=== PATIENT | female | born 1945 | race Native Hawaiian/Other Pacific Islander ===

== ENCOUNTER 2016-08-02 13:14 | Emergency (ER) | payer MEDICARE ==
[2016-08-02 13:20] VITALS: BMI 24.7
[2016-08-02 13:21] VITALS: O2SAT 98
[2016-08-02] MEDS ORDERED: Sodium Chloride 0.9% 1,000 ML IV ONE (13:46)
[2016-08-02] MEDS: Iohexol 240 (50 ml) PO STA ×2 (13:50→15:35)
--- NOTE | 2016-08-02 13:53 | C.PDOC ---
History Of Present Illness A 71 year old female presents to the ED c/o epigastric pain that occurred today. Patient notes feeling nausea and vomiting. Patient reports that waking up this morning feeling abdominally full and had epigastric discomfort. She ate oatmeal and started vomiting and then felt deep aching pain that diffuse to the lower extremities. Patient notes no prior abdominal pain and normal bowel movement but denies fever, chills, cough, diarrhea or any other complaints. Time Seen by Provider: 08/02/16 13:37 Chief Complaint (Nursing): Abdominal Pain History Per: Patient History/Exam Limitations: no limitations Onset/Duration Of Symptoms: Hrs Current Symptoms Are (Timing): Still Present Context: Food Severity: Mild Location Of Pain/Discomfort: Epigastric Associated Symptoms: Nausea, Vomiting Recent travel outside of the [place]: No Additional History Per: Patient Past Medical History Reviewed: Historical Data, Nursing Documentation, Vital Signs Vital Signs: Last Vital Signs Temp 97.9 F 08/02/16 13:35 Pulse 68 08/02/16 15:53 Resp 18 08/02/16 15:53 BP 152/63 H 08/02/16 15:53 Pulse Ox 98 08/02/16 15:53 - Medical History PMH: Gastritis, HTN, Hypercholesterolemia, Kidney Stones - [facility] Procedures ANESTH INJECT-SPIN CANAL (10/30/14) INJECT STEROID (10/30/14) LUMBOSAC SPINE X-RAY NEC (09/23/14) SPINAL CANAL INJECT NEC (10/30/14) Family History: States: Unknown Family Hx - Social History Hx Tobacco Use: No Hx Alcohol Use: No Hx Substance Use: No - Immunization History Hx Tetanus Toxoid Vaccination: No Hx Influenza Vaccination: No Hx Pneumococcal Vaccination: No Review Of Systems Except As Marked, All Systems Reviewed And Found Negative. Constitutional: Negative for: Fever, Chills Respiratory: Negative for: Cough Gastrointestinal: Positive for: Nausea, Vomiting, Abdominal Pain. Negative for : Diarrhea Musculoskeletal: Positive for: Leg Pain (Diffuse to lower extremities) Physical Exam - Physical Exam Appears: Non-toxic, No Acute Distress Skin: Warm, Dry Head: Atraumatic, Normacephalic Eye(s): bilateral: Normal Inspection Cardiovascular: Rhythm Regular, No Murmur Respiratory: Normal Breath Sounds, No Rales, No Rhonchi, No Wheezing Gastrointestinal/Abdominal: Bowel Sounds (All for quadrants good), Soft, Tenderness (Epigastric), No Guarding, No Rebound ED Course And Treatment - Laboratory Results Result Diagrams: 08/02/16 14:01 08/02/16 14:01 Lab Interpretation: Abnormal Interpretation Of Abnormal: WBC 12.5 with left shift. CMP unremarkable, Urine + blood ECG: Interpreted By Me ECG Rhythm: Sinus Rhythm ECG Interpretation: Normal O2 Sat by Pulse Oximetry: 98 (Room air) Pulse Ox Interpretation: Normal - CT Scan/US Abdomen and pelvis Other Rad Studies (CT/US): Read By Radiologist, Radiology Report Reviewed CT/US Interpretation: Accession No. : [id number]. Patient Name / ID : KO [id number] / [id number]. Exam Date : 08/02/2016 16:21:55 ( Approved ). Study Comment : Sex / Age : F / 71Y. Creator : Gia Perez MD. Dictator : Gia Perez MD. Hypo Splasher : Bathhouse Attendant : Gia Perez MD. Approver2 : Report Date : 08/02/2016 16:47:08. My Comment : . PROCEDURE: CT Abdomen and Pelvis with oral and IV contrast. HISTORY: abd pain. COMPARISON: Images from CT abdomen and pelvis without contrast performed 09/21/11. TECHNIQUE: Contiguous axial images of the abdomen and pelvis. Oral and IV contrast was administered. Coronal and Sagittal reformats generated and reviewed. Contrast dose: 100 mL Visipaque. Radiation dose: Total exam DLP = 253.55 mGy-cm. This CT exam was performed using one or more of the following dose reduction techniques: Automated exposure control, adjustment of the mA and/or kV according to patient size, and/or use of iterative reconstruction technique. FINDINGS: LOWER THORAX: No visible consolidation, pleural effusion, or pneumothorax. Small hiatal hernia and gastroesophageal reflux. LIVER: Unremarkable. GALLBLADDER AND BILE DUCTS: Unremarkable. PANCREAS: Unremarkable. SPLEEN: Unremarkable. ADRENALS: Unremarkable. KIDNEYS AND URETERS: 5 mm distal left UVJ calculus with proximal hydroureteronephrosis. Left perinephric inflammatory stranding. The right kidney appears unremarkable without hydronephrosis or obstructing calculus evident. BLADDER: See above. REPRODUCTIVE: Uterus is present. APPENDIX: The appendix is not identified. No secondary signs of acute appendicitis. BOWEL: The stomach is nondistended. The bowel loops appear within normal limits of caliber without evidence of intestinal obstruction. PERITONEUM: No significant free fluid. No definite free air. LYMPH NODES: No bulky lymphadenopathy identified. VASCULATURE: Atherosclerotic calcifications. No aortic aneurysm. BONES: L5-S1 posterior lumbar fusion with grade 1 anterolisthesis of L4 on L5. Mild degenerative changes. OTHER FINDINGS : None. IMPRESSION: 5 mm distal left UVJ calculus with proximal moderate hydroureteronephrosis. Left perinephric inflammatory stranding. Additional incidental findings as above. Reevaluation Time: 17:22 Reassessment Condition: Improved Medical Decision Making Medical Decision Making: Plans: -CT Abd/Pel -Blood labs -Omnipaque -Zofran -IV fluids -Urine labs -Reassess and disposition Disposition Counseled Patient/Family Regarding: Studies Performed, Diagnosis, Need For Followup, Rx Given - Disposition Referrals: Jackelin Barajas MD [Staff Provider] - Disposition: HOME/ ROUTINE Disposition Time: 17:26 Condition: IMPROVED Additional Instructions: Strain all urine Prescriptions: Tamsulosin [Flomax] 0.4 mg PO DAILY #14 cap traMADol [Ultram] 50 mg PO TID PRN #14 tab PRN Reason: Pain, Severe (8-10) Instructions: Renal Colic (ED) - Clinical Impression Clinical Impression: Renal colic on left side - Scribe Statement The provider has reviewed the documentation as recorded by the Scribe Maddison jamison All medical record entries made by the Scribe were at my direction and personally dictated by me. I have reviewed the chart and agree that the record accurately reflects my personal performance of the history, physical exam, medical decision making, and the department course for this patient. I have also personally directed, reviewed, and agree with the discharge instructions and disposition.
[2016-08-02 14:06] LABS: BASO # 0.1 K/uL (0.0-0.2); BASO % 0.6 % (0.0-2.0); HEMATOCRIT 38.5 % (34.0-47.0); LYMPH # 0.7 K/uL (1.0-4.3); LYMPH % 5.6 % (20.0-40.0); MEAN CELL VOLUME 83.6 fL (81.0-99.0); MEAN CORPUSCULAR HEMOGLOBIN 26.7 pg (27.0-31.0); MEAN CORPUSCULAR HGB CONC 31.9 g/dL (33.0-37.0); MEAN PLATELET VOLUME 8.8 fL (7.2-11.7); MONO # 0.2 K/uL (0.0-0.8); MONO % 1.9 % (0.0-10.0); PLATELET COUNT 181 K/uL (130-400); RED CELL DISTRIBUTION WIDTH 13.5 % (11.5-14.5); WHITE BLOOD COUNT 12.5 K/uL (4.8-10.8)
[2016-08-02 14:14] LABS: CHLORIDE 100 mmol/L (98-107); POTASSIUM 4.3 mmol/L (3.6-5.2); SODIUM 140 mmol/L (132-148)
[2016-08-02 14:16] LABS: AST/SGOT 36 U/L (14-36); BILIRUBIN,TOTAL 0.9 mg/dL (0.2-1.3); CARBON DIOXIDE 21 mmol/L (22-30); GFR AFRICAN-AMERICAN > 60
[2016-08-02 14:17] LABS: ALB/GLOB RATIO 1.2 (1.0-2.1); ALKALINE PHOSPHATASE 51 U/L (38-126); ALT/SGPT 24 U/L (9-52); BLOOD UREA NITROGEN 19 mg/dL (7-17); CALCIUM 9.7 mg/dl (8.6-10.4); GLUCOSE,RANDOM 146 mg/dL (65-105); TOTAL PROTEIN 9.1 g/dL (6.3-8.3)
[2016-08-02] MEDS ORDERED: Sodium Chloride 0.9% 1,000 ML ONE (14:21)
[2016-08-02] MEDS ORDERED: Iohexol 240 (50 ml) ONE (14:29)
[2016-08-02 15:32] LABS: NEUTROPHIL 88 % (50-75); TOTAL CELLS COUNTED 100
[2016-08-02 15:53] VITALS: RESP 18
[2016-08-02 16:12] LABS: RBC URINE 25 /hpf (0-3); URINE BACTERIA RARE (<OCC); URINE BILIRUBIN NEGATIVE (NEGATIVE); URINE COLOR Yellow (YELLOW); URINE GLUCOSE (UA) NORMAL (Normal); URINE KETONE TRACE mg/dL (NEGATIVE); URINE LEUKOCYTE ESTERASE NEG Leu/uL (Negative); URINE PROTEIN NEGATIVE (NEGATIVE); URINE UROBILINOGEN NORMAL mg/dL (0.2-1.0); WBC URINE 5 /hpf (0-5)
[2016-08-02] MEDS ORDERED: Iodixanol 320 MG/ML 100 ML BOTTLE IV ONE (16:12)
[2016-08-02 16:13] LABS: URINE BLOOD 1+ (NEGATIVE)
--- NOTE | 2016-08-02 16:48 | CT ---
PROCEDURE: CT Abdomen and Pelvis with oral and IV contrast. HISTORY: abd pain COMPARISON: Images from CT abdomen and pelvis without contrast performed 09/21/11 TECHNIQUE: Contiguous axial images of the abdomen and pelvis. Oral and IV contrast was administered. Coronal and Sagittal reformats generated and reviewed. Contrast dose: 100 mL Visipaque Radiation dose: Total exam DLP = 253.55 mGy-cm. This CT exam was performed using one or more of the following dose reduction techniques: Automated exposure control, adjustment of the mA and/or kV according to patient size, and/or use of iterative reconstruction technique. FINDINGS: LOWER THORAX: No visible consolidation, pleural effusion, or pneumothorax. Small hiatal hernia and gastroesophageal reflux. LIVER: Unremarkable. GALLBLADDER AND BILE DUCTS: Unremarkable. PANCREAS: Unremarkable. SPLEEN: Unremarkable. ADRENALS: Unremarkable. KIDNEYS AND URETERS: 5 mm distal left UVJ calculus with proximal hydroureteronephrosis. Left perinephric inflammatory stranding. The right kidney appears unremarkable without hydronephrosis or obstructing calculus evident. BLADDER: See above. REPRODUCTIVE: Uterus is present. APPENDIX: The appendix is not identified. No secondary signs of acute appendicitis. BOWEL: The stomach is nondistended. The bowel loops appear within normal limits of caliber without evidence of intestinal obstruction. PERITONEUM: No significant free fluid. No definite free air. LYMPH NODES: No bulky lymphadenopathy identified. VASCULATURE: Atherosclerotic calcifications. No aortic aneurysm. BONES: L5-S1 posterior lumbar fusion with grade 1 anterolisthesis of L4 on L5. Mild degenerative changes. OTHER FINDINGS: None. IMPRESSION: 5 mm distal left UVJ calculus with proximal moderate hydroureteronephrosis. Left perinephric inflammatory stranding. Additional incidental findings as above.
[2016-08-02 17:25] VITALS: BP 114/70; PULSE 64; TEMP 98
--- NOTE | 2016-08-03 18:47 | CARD ---
APPROVED REPORT EKG Measurement Heart [id number] <Conclusion> Normal sinus rhythm Normal ECG
== END 2016-08-02 17:42 | disposition home or self-care (01) ==
LOC: C.ER 13:14
DX: N13.2 Hydronephrosis with renal and ureteral calculous obstruction (principal); Z87.442 Personal history of urinary calculi
CPT/HCPCS: 74177; 80053; 81001; 83690; 85025; 93005; 96361; 96374; 96375; 99285; J2270; J2405; J7040; Q9966; Q9967